=== PATIENT | male | born 1995 ===

== ENCOUNTER → 2021-06-14 14:42 | Outpatient (BNVA) | payer OTHER, SELFPAY | PROVIDERS: PCP Physician Assistant; Visit Provider Internal Medicine Endocrinology, Diabetes & Metabolism | DX: N62 Hypertrophy of breast (principal); R79.89 Other specified abnormal findings of blood chemistry | CPT/HCPCS: 99202 ==

== ENCOUNTER 2021-06-21 13:25 | Outpatient (REF) | payer OTHER, SELFPAY ==
[2021-06-21 17:30] LABS: Free T4 (Free Thyroxine) 1.03 ng/dL (0.71-1.85); Thyroid Stimulating Hormone 3.02 uIU/mL (0.32-4.0)
[2021-06-24 02:10] LABS: DHEA Sulfate 382 mcg/dL (74-617); HCG Tumor Marker <3 mIU/mL (<5)
[2021-06-28 15:05] LABS: Testosterone, Free 84.4 pg/mL (35.0-155.0); Testosterone, Total 377 ng/dL (250-1100)
== END 2021-06-21 13:26 | disposition home or self-care (01) ==
LOC: HO.HMGCLDS 13:25
PROVIDERS: Visit Provider Internal Medicine Endocrinology, Diabetes & Metabolism
DX: N62 Hypertrophy of breast (principal); R79.89 Other specified abnormal findings of blood chemistry
CPT/HCPCS: 36415; 82627; 84402; 84403; 84439; 84443; 84702